=== PATIENT | female | born 1975 | race Caucasian/White ===

== ENCOUNTER 2016-07-06 12:36 | Emergency (ER) | payer OTHER ==
[~2016-07-06] VITALS: Ht 170.2 cm; Wt 59.9 kg
[2016-07-06] MEDS ORDERED: NKM (13:08)
[2016-07-06 13:10] VITALS: BP 115/77
[2016-07-06] MEDS ORDERED: LEVAQUIN750 MG ORAL (13:26)
[2016-07-06] MEDS ORDERED: PSEUDOEPHEDRINE60 MG PO (13:26)
[2016-07-06 13:29] VITALS: BP 115/77
--- NOTE | 2016-07-06 13:54 | Emergency Room Report ---
History of Present Illness General Chief Complaint: Upper Respiratory Illness Source: Patient Present Illness HPI The patient is a 40-year-old female presenting for left-sided facial pain, cough , and subjective fevers. The patient states that she has a history of sinusitis and this feels similar. The patient has not been treated for this. Pain is described as 5/10 dull ache and is worse with bending over. No radiation of pain. The patient denies any sick contacts or recent travel. Pt denies N, V, night sweats, rash, KRAFT, dizziness, blurred vision, SOB Allergies: Coded Allergies: No Known Allergies (Unverified , 07/06/16) Patient History Past Medical History: see triage record Pertinent Family History: none Last Menstrual Period: 06/08/16 Now: No Reviewed Nursing Documentation: PMH: Agreed, PSxH: Agreed Nursing Documentation-PMH Past Medical History: No Stated History Review of Systems All Other Systems: negative except mentioned in HPI Physical Exam Vital Signs Date Time Temp Pulse Resp B/P Pulse Ox O2 Delivery O2 Flow Rate FiO2 07/06/16 13:04 97.3 85 16 115/77 99 Room Air Sp02 EP Interpretation: reviewed, normal General Appearance: no apparent distress, alert, GCS 15, non-toxic Head: normocephalic, atraumatic Eyes: bilateral eye PERRL, bilateral eye normal inspection ENT: hearing grossly normal, normal pharynx, no angioedema, normal voice, TMs + canals normal, uvula midline, other - TTP over L maxillary sinus Neck: full range of motion, supple/symm/no masses Respiratory: chest non-tender, lungs clear, normal breath sounds, speaking full sentences Cardiovascular #1: regular rate, rhythm, no edema Neurologic: alert, oriented x3, responsive, motor strength/tone normal, sensory intact, speech normal Psychiatric: judgement/insight normal, memory normal, mood/affect normal, no suicidal/homicidal ideation Skin: normal color, no rash, warm/dry, well hydrated Lymphatic: no adenopathy Medical Decision Making PA Attestation Dr. Villalobos is my supervising physician. Patient management was discussed with my supervising physician Diagnostic Impression: Primary Impression: Acute maxillary sinusitis ER Course The patient is a 40-year-old female presenting for left-sided facial pain, cough , and subjective fevers. Differential diagnoses considered: Sinusitis, pharyngitis, allergies, otitis media Physical exam: Afebrile. No apparent distress There is tenderness to palpation over the left maxillary sinus. HEENT: + Nasal congestion. Otherwise unremarkable Lungs clear to auscultation bilaterally The patient will be discharged home with a prescription for Levaquin and Sudafed. ER precautions are given Last Vital Signs Date Time Temp Pulse Resp B/P Pulse Ox O2 Delivery O2 Flow Rate FiO2 07/06/16 13:04 97.3 85 16 115/77 99 Room Air Status: improved Disposition: HOME, SELF-CARE Condition: Improved Scripts Pseudoephedrine Hcl* (SUDAFED*) 60 Mg Tablet 60 MG PO Q6H, #20 TAB Prov: ARTURO VELASQUEZ P.A. 07/06/16 Levofloxacin* (LEVAQUIN*) 750 Mg Tablet 750 MG ORAL DAILY, #5 TAB Prov: ARTURO VELASQUEZ P.A. 07/06/16 Patient Instructions: Sinusitis, Adult Additional Instructions: I discussed my findings with the patient. All questions and concerns have been answered. Treatment and medication compliance have been addressed. I advised the patient that they need to follow up with PMD in 3-5 days. Return to ED if symptoms worsen, new symptoms arise, or if needed for any reason. Patient verbalized understanding of discharge instructions. ARTURO VELASQUEZ Jul 06, 2016 13:54
== END 2016-07-06 13:29 | disposition home or self-care (01) ==
LOC: EMR 13:00
DX: J01.00 Acute maxillary sinusitis, unspecified (principal)
CPT/HCPCS: 99284